=== PATIENT | female | born 1980 | race Caucasian/White ===

== ENCOUNTER 2018-04-24 20:54 | Emergency (ER) | payer BC ==
[~2018-04-24] VITALS: Ht 165.1 cm; Wt 64.0 kg
[2018-04-24 21:02] VITALS: BP 141/81
[2018-04-24] MEDS ORDERED: bacitracin 15gm ointment TP ONE (21:45)
== END 2018-04-24 22:08 | disposition home or self-care (01) ==
LOC: ER 20:55
DX: T22.211A Burn of second degree of right forearm, initial encounter (principal); X15.8XXA Contact with other hot household appliances, initial encounter; Y93.G3 Activity, cooking and baking; Y92.89 Other specified places as the place of occurrence of the external cause; Y99.8 Other external cause status
CPT/HCPCS: 16020; 99284